=== PATIENT | female | born 1945 | race Caucasian/White ===

== ENCOUNTER 2020-07-15 10:46 | Inpatient (IN) ==
[~2020-07-15 10:46] MED LIST: DIAZEPAM 5 MG TABLET PO ONE; SODIUM CHLORIDE 0.9% 1,000 ML IV SCH; VANCOMYCIN 500 MG VIAL IRRIG ONE; VANCOMYCIN INJ 500 MG in SODIUM CHLORIDE 0.9% 100 ML IV ONE; diphenhydrAMINE CAP 25 MG CAPSULE PO ONE
[2020-07-15] MEDS ORDERED: diphenhydrAMINE CAP 25 MG CAPSULE ONE (11:15)
[2020-07-15] MEDS ORDERED: DIAZEPAM 5 MG TABLET ONE (11:15)
[2020-07-15] MEDS ORDERED: VANCOMYCIN 500 MG VIAL ONE (12:38)
[2020-07-15] MEDS ORDERED: TISSUE ADHESIVE 1 EACH APPLICATOR TOP ONE (12:39)
[2020-07-15] MEDS ORDERED: LIDOCAINE 1% 20 ML VIAL ONE (12:49)
[2020-07-15] MEDS ORDERED: fentaNYL 100 MCG/2 ML VIAL ONE (13:09)
[2020-07-15] MEDS ORDERED: MIDAZOLAM 2 MG/2 ML VIAL ONE ×2 (13:09→13:34)
[2020-07-15] MEDS ORDERED: PROMETHAZINE 25 MG/1 ML VIAL ONE (13:45)
[2020-07-15] MEDS ORDERED: ZALEPLON 5 MG CAPSULE PO PRN (14:50)
[2020-07-15] MEDS ORDERED: ACETAMINOPHEN 325 MG TABLET PO PRN (14:50)
[2020-07-15] MEDS ORDERED: ALUMINUM/MAGNES/SIMETH MAX STR 30 ML UDCUP PO PRN (14:50)
[2020-07-15] MEDS: FLECAINIDE 100 MG TABLET PO SCH (19:43)
[2020-07-15] MEDS ORDERED: LIDOCAINE 2% 20 ML VIAL ONE (20:39)
[2020-07-15] MEDS ORDERED: LIDOCAINE 2%/EPI 20 ML VIAL NERVEBLOCK ONE (20:45)
[2020-07-15] MEDS: ASPIRIN EC 81 MG TABLET PO SCH (22:37)
[2020-07-15] MEDS: ONDANSETRON 4 MG/2 ML VIAL IV PRN (22:47)
[2020-07-16 05:38] LABS: Basophils # 0.1 10*3/uL (0.0-0.2); Basophils % 0.5 % (0.0-0.8); Eosinophils % 0.1 % (0.00-10.9); Hematocrit 41.3 VOL% (35.7-47.0); Hemoglobin 13.8 GM/DL (12.0-16.0); Immature Granulocytes % 0.7 %; Immature Granulocytes Absolute 0.07 #; Lymphocytes # 1.1 10*3/uL (1.4-4.0); Lymphocytes % 10.3 % (21.3-54.2); Mean Corpuscular HGB Conc 33.4 GM/DL (32-36); Mean Corpuscular Volume 92.8 FL (87-102); Mean Platelet Volume 9.2 FL (9.6-12.0); Monocytes % 12.7 % (1.7-12.7); Neutrophils % 75.7 % (38.7-73.9); Platelet Count 226 T/CUMM (130-400); Red Blood Count 4.45 MC/CUMM (3.8-5.5); Red Cell Distribution Width 12.4 % (9.3-17.3); White Blood Count 10.5 T/CUMM (4-12)
[2020-07-16] MEDS ORDERED: HYDROmorphone 2 MG/1 ML VIAL IV PRN (08:20)
[2020-07-16] MEDS: FLECAINIDE 100 MG TABLET PO SCH ×2 (09:22→21:21)
[2020-07-16] MEDS: ZINC GLUCONATE 50 MG TABLET PO SCH (09:23)
[2020-07-16] MEDS: NAPROXEN 500 MG TABLET PO SCH ×2 (09:23→10:13)
[2020-07-16] MEDS: CHOLECALCIFEROL 1,000 UNIT TABLET PO SCH (09:23)
[2020-07-16] MEDS: LACTOBACILLUS ACIDOPHILUS/BULGARICUS CAPLET PO SCH (09:23)
[2020-07-16] MEDS: amLODIPine 5 MG TABLET PO SCH (09:24)
[2020-07-16] MEDS: CHOLESTYRAMINE/ASPARTAME 4 GM PACK PO SCH (10:13)
[2020-07-16] MEDS: NON-FORMULARY MEDICATION (Biotin 1,000 mcg Tablet,Chewable) PO SCH (10:13)
[2020-07-16] MEDS: ASPIRIN EC 81 MG TABLET PO SCH (21:22)
[2020-07-17] MEDS: FLECAINIDE 100 MG TABLET PO SCH ×2 (08:47→21:56)
[2020-07-17] MEDS: ZINC GLUCONATE 50 MG TABLET PO SCH (08:48)
[2020-07-17] MEDS: NAPROXEN 500 MG TABLET PO SCH (08:48)
[2020-07-17] MEDS: LACTOBACILLUS ACIDOPHILUS/BULGARICUS CAPLET PO SCH (08:48)
[2020-07-17] MEDS: CHOLECALCIFEROL 1,000 UNIT TABLET PO SCH (08:48)
[2020-07-17] MEDS: NON-FORMULARY MEDICATION (Biotin 1,000 mcg Tablet,Chewable) PO SCH (08:49)
[2020-07-17] MEDS: CHOLESTYRAMINE/ASPARTAME 4 GM PACK PO SCH (08:49)
[2020-07-17] MEDS: amLODIPine 5 MG TABLET PO SCH (08:49)
[2020-07-17] MEDS: ONDANSETRON 4 MG/2 ML VIAL IV PRN (21:11)
[2020-07-17] MEDS: ASPIRIN EC 81 MG TABLET PO SCH (21:57)
[2020-07-18] MEDS: FLECAINIDE 100 MG TABLET PO SCH ×2 (08:31→21:17)
[2020-07-18] MEDS: CHOLECALCIFEROL 1,000 UNIT TABLET PO SCH (08:31)
[2020-07-18] MEDS: NON-FORMULARY MEDICATION (Biotin 1,000 mcg Tablet,Chewable) PO SCH (08:32)
[2020-07-18] MEDS: LACTOBACILLUS ACIDOPHILUS/BULGARICUS CAPLET PO SCH (08:32)
[2020-07-18] MEDS: NAPROXEN 500 MG TABLET PO SCH (08:32)
[2020-07-18] MEDS: ZINC GLUCONATE 50 MG TABLET PO SCH (08:32)
[2020-07-18] MEDS: CHOLESTYRAMINE/ASPARTAME 4 GM PACK PO SCH (08:32)
[2020-07-18] MEDS: amLODIPine 5 MG TABLET PO SCH (08:32)
[2020-07-18] MEDS: ASPIRIN EC 81 MG TABLET PO SCH (21:17)
[2020-07-19] MEDS: CHOLECALCIFEROL 1,000 UNIT TABLET PO SCH (10:01)
[2020-07-19] MEDS: NAPROXEN 500 MG TABLET PO SCH (10:01)
[2020-07-19] MEDS: FLECAINIDE 100 MG TABLET PO SCH ×2 (10:02→21:18)
[2020-07-19] MEDS: amLODIPine 5 MG TABLET PO SCH (10:02)
[2020-07-19] MEDS: CHOLESTYRAMINE/ASPARTAME 4 GM PACK PO SCH (10:03)
[2020-07-19] MEDS: LACTOBACILLUS ACIDOPHILUS/BULGARICUS CAPLET PO SCH (10:03)
[2020-07-19] MEDS: ZINC GLUCONATE 50 MG TABLET PO SCH (10:03)
[2020-07-19] MEDS: NON-FORMULARY MEDICATION (Biotin 1,000 mcg Tablet,Chewable) PO SCH (10:04)
[2020-07-19] MEDS: ASPIRIN EC 81 MG TABLET PO SCH (21:18)
[2020-07-20 05:46] LABS: Basophils # 0.1 10*3/uL (0.0-0.2); Basophils % 1.2 % (0.0-0.8); Eosinophils # 0.4 10*3/uL (0.0-0.87); Eosinophils % 5.8 % (0.00-10.9); Hematocrit 43.3 VOL% (35.7-47.0); Hemoglobin 14.2 GM/DL (12.0-16.0); Immature Granulocytes Absolute 0.06 #; Lymphocytes # 1.6 10*3/uL (1.4-4.0); Lymphocytes % 25.8 % (21.3-54.2); Mean Corpuscular HGB Conc 32.8 GM/DL (32-36); Mean Corpuscular Volume 93.5 FL (87-102); Mean Platelet Volume 9.6 FL (9.6-12.0); Monocytes % 17.8 % (1.7-12.7); Neutrophils % 48.4 % (38.7-73.9); Platelet Count 249 T/CUMM (130-400); Red Blood Count 4.63 MC/CUMM (3.8-5.5); Red Cell Distribution Width 12.1 % (9.3-17.3); White Blood Count 6.1 T/CUMM (4-12)
[2020-07-20 06:21] LABS: Eosinophils 5 % (0-10); Lymphocytes 26 % (20-55); Platelet Estimate Adequate; Segmented Neutrophils 51 % (50-85); Total Cells Counted 100
[2020-07-20 06:23] LABS: Calcium 10.1 MG/DL (8.5-10.1); Osmolality,Calculated 269.2 MOS/KG (273-304)
[2020-07-20] MEDS: CHOLECALCIFEROL 1,000 UNIT TABLET PO SCH (10:04)
[2020-07-20] MEDS: FLECAINIDE 100 MG TABLET PO SCH ×2 (10:04→21:26)
[2020-07-20] MEDS: ZINC GLUCONATE 50 MG TABLET PO SCH (10:04)
[2020-07-20] MEDS: NAPROXEN 500 MG TABLET PO SCH (10:05)
[2020-07-20] MEDS: amLODIPine 5 MG TABLET PO SCH (10:05)
[2020-07-20] MEDS: CHOLESTYRAMINE/ASPARTAME 4 GM PACK PO SCH (10:05)
[2020-07-20] MEDS: LACTOBACILLUS ACIDOPHILUS/BULGARICUS CAPLET PO SCH (10:05)
[2020-07-20] MEDS: NON-FORMULARY MEDICATION (Biotin 1,000 mcg Tablet,Chewable) PO SCH (10:06)
[2020-07-20] MEDS ORDERED: BISACODYL 10 MG SUPP RECTAL PRN (11:57)
[2020-07-20] MEDS: DILTIAZEM 60 MG TABLET PO SCH ×2 (16:15→21:30)
[2020-07-20] MEDS: ONDANSETRON 4 MG/2 ML VIAL IV PRN (21:25)
[2020-07-20] MEDS: ASPIRIN EC 81 MG TABLET PO SCH (21:26)
[2020-07-21 05:49] LABS: Basophils % 0.2 % (0.0-0.8); Eosinophils % 0.1 % (0.00-10.9); Hematocrit 44.1 VOL% (35.7-47.0); Immature Granulocytes % 0.7 %; Mean Corpuscular Volume 90.2 FL (87-102); Mean Platelet Volume 9.6 FL (9.6-12.0); Monocytes % 7.3 % (1.7-12.7); Neutrophils % 84.7 % (38.7-73.9); Platelet Count 274 T/CUMM (130-400); Red Blood Count 4.89 MC/CUMM (3.8-5.5); White Blood Count 14.5 T/CUMM (4-12)
[2020-07-21 05:54] LABS: Osmolality,Calculated 275.1 MOS/KG (273-304)
[2020-07-21] MEDS: FLECAINIDE 100 MG TABLET PO SCH ×2 (09:05→20:28)
[2020-07-21] MEDS: LACTOBACILLUS ACIDOPHILUS/BULGARICUS CAPLET PO SCH (09:05)
[2020-07-21] MEDS: NAPROXEN 500 MG TABLET PO SCH (09:05)
[2020-07-21] MEDS: ZINC GLUCONATE 50 MG TABLET PO SCH (09:05)
[2020-07-21] MEDS: NON-FORMULARY MEDICATION (Biotin 1,000 mcg Tablet,Chewable) PO SCH (09:06)
[2020-07-21] MEDS: amLODIPine 5 MG TABLET PO SCH (09:06)
[2020-07-21] MEDS: CHOLECALCIFEROL 1,000 UNIT TABLET PO SCH (09:06)
[2020-07-21] MEDS: METOPROLOL TARTRATE 25 MG TABLET PO SCH ×2 (09:06→20:28)
[2020-07-21] MEDS: CHOLESTYRAMINE/ASPARTAME 4 GM PACK PO SCH (09:06)
[2020-07-21] MEDS: ONDANSETRON 4 MG/2 ML VIAL IV PRN (09:15)
[2020-07-21] MEDS ORDERED: METOPROLOL TARTRATE 5 MG/5 ML VIAL IV SCH (10:00)
[2020-07-21] MEDS ORDERED: METOPROLOL TARTRATE 5 MG/5 ML VIAL IV PRN (10:49)
[2020-07-21 14:50] LABS: Bilirubin,Urine Negative (Negative); Blood, Urine Small mg/dL (Negative); Glucose,Urine (UA) Negative (Negative); Ketones,Urine Negative (Negative); Mucus,Urine Occasional /LPF (Occasional); Nitrite,Urine Negative (Negative); Protein,Urine Negative; RBC,Urine 2 /HPF (0-4); Squamous Epithelial Cell,Urine Occasional /HPF (0-10); Urine Appearance CLEAR (Clear); Urine Color Yellow (Yellow); Urine Specific Gravity 1.011 (1.001-1.035); Urine Urobilinogen < 2.0 EU/DL (0.2-1.0); WBC,Urine 2 /HPF (0-6)
[2020-07-21] MEDS: ASPIRIN EC 81 MG TABLET PO SCH (20:28)
[2020-07-22] MEDS: ONDANSETRON 4 MG/2 ML VIAL IV PRN (02:48)
[2020-07-22 06:27] LABS: Basophils # 0.1 10*3/uL (0.0-0.2); Basophils % 0.3 % (0.0-0.8); Eosinophils # 0.2 10*3/uL (0.0-0.87); Eosinophils % 1.1 % (0.00-10.9); Hematocrit 43.9 VOL% (35.7-47.0); Hemoglobin 14.4 GM/DL (12.0-16.0); Immature Granulocytes % 0.5 %; Immature Granulocytes Absolute 0.08 #; Lymphocytes # 1.5 10*3/uL (1.4-4.0); Mean Corpuscular HGB Conc 32.8 GM/DL (32-36); Mean Corpuscular Volume 92.4 FL (87-102); Mean Platelet Volume 10.4 FL (9.6-12.0); Monocytes % 9.5 % (1.7-12.7); Neutrophils % 78.6 % (38.7-73.9); Platelet Count 223 T/CUMM (130-400); Red Blood Count 4.75 MC/CUMM (3.8-5.5); Red Cell Distribution Width 12.1 % (9.3-17.3); White Blood Count 14.9 T/CUMM (4-12)
[2020-07-22 06:41] LABS: Calcium 10.4 MG/DL (8.5-10.1); Osmolality,Calculated 276.7 MOS/KG (273-304)
[2020-07-22] MEDS: LACTOBACILLUS ACIDOPHILUS/BULGARICUS CAPLET PO SCH (08:06)
[2020-07-22] MEDS: ZINC GLUCONATE 50 MG TABLET PO SCH (08:06)
[2020-07-22] MEDS: FLECAINIDE 100 MG TABLET PO SCH (08:06)
[2020-07-22] MEDS: NAPROXEN 500 MG TABLET PO SCH (08:06)
[2020-07-22] MEDS: CHOLECALCIFEROL 1,000 UNIT TABLET PO SCH (08:06)
[2020-07-22] MEDS: METOPROLOL TARTRATE 25 MG TABLET PO SCH (08:06)
[2020-07-22] MEDS: NON-FORMULARY MEDICATION (Biotin 1,000 mcg Tablet,Chewable) PO SCH (08:07)
[2020-07-22] MEDS: CHOLESTYRAMINE/ASPARTAME 4 GM PACK PO SCH (08:07)
[2020-07-22] MEDS: amLODIPine 5 MG TABLET PO SCH (08:09)
[2020-07-22 11:52] VITALS: BP 119/61
== END 2020-07-22 12:38 | disposition home or self-care (01) | DRG 243 ==
LOC: N.CL 10:46 → N.TELES 15:13
PROVIDERS: ADMIT Internal Medicine Cardiovascular Disease; ATTEND Internal Medicine Cardiovascular Disease